=== PATIENT | female | born 1965 | race Caucasian/White ===

== ENCOUNTER 2023-09-03 10:16 | Emergency (ER) | payer BC, SELFPAY ==
[2023-09-03 10:19] VITALS: BP 117/76; PULSE 106; RESP 20; TEMP 36.6; O2SAT 99; BMI 18.6
--- NOTE | 2023-09-03 10:28 | CT_ITS ---
The [address] [address] Patient Name: ELEUTERIO BUTT MRN: [id number] date: 1965 Sex: F Assigned Patient Location: ER Current Patient Location: ER Accession/Order Number: [id number] Exam Date: 09/03/2023 10:40 Report Date: 09/03/2023 11:00 At the request of: VICENTE STOVALL Procedure: CT head/brain wo con CT head/brain wo con, 09/03/2023 10:40 AM EST INDICATION: Headache COMPARISON: None. TECHNIQUE: Axial CT images of the brain from skull base to vertex, including portions of the face and sinuses, were obtained without contrast. Multiplanar reformatted images were generated and reviewed as needed. FINDINGS: No intracranial mass, hydrocephalus, midline shift or acute hemorrhage. No extra-axial collection. Osman-white matter differentiation is preserved. The paranasal sinuses and mastoid air cells are clear. Orbits are within normal limits. No acute skull fracture. CT/CT head/brain wo con IMPRESSION: No acute intracranial abnormality. Electronically authenticated by: SOURAV HARGROVE Date: 09/03/2023 11:00
[2023-09-03 10:56] LABS: Basophils Absolute Auto 0.1 10^3/uL (0.0-0.1); Basophils Percent Auto 0.5 % (0.2-2.0); Eosinophils Percent Auto 0.3 % (0.9-7.0); Hematocrit 41.7 % (36.0-48.0); Hemoglobin 13.3 g/dL (12.0-16.0); Immature Granulocytes Abs Auto 0.04 10^3/uL (0.00-0.03); Immature Granulocytes Pct Auto 0.3 % (0.0-0.5); Lymphocytes Absolute Auto 1.5 10^3/uL (1.2-3.8); Lymphocytes Percent Auto 11.5 % (20.5-60.0); Mean Corpuscular HGB Conc 31.9 g/dL (29.9-35.2); Mean Corpuscular Hemoglobin 28.2 pg (26.7-34.0); Mean Corpuscular Volume 88.3 fL (81.0-99.0); Monocytes Absolute Auto 0.7 10^3/uL (0.3-0.8); Monocytes Percent Auto 5.1 % (1.7-12.0); Neutrophils Absolute Auto 10.7 10^3/uL (1.4-6.5); Neutrophils Percent Auto 82.3 % (43.0-75.0); Platelet Count 564 10^3/uL (150-450); Red Blood Count 4.72 10^6/uL (4.20-5.40); Red Cell Distribution Width 13.5 % (11.0-15.0)
--- NOTE | 2023-09-03 11:01 | ED_ITS ---
HPI - General Adult General Chief complaint: Headache Stated complaint: HEADACHE Time Seen by Provider: 09/03/23 10:25 Source: patient Mode of arrival: walk-in Limitations: no limitations History of Present Illness HPI narrative: Patient is a 57-year-old female who is presenting to the Emergency Room with chief complaint Of multiple symptoms. Patient is complaining of intermittent headache for the past couple weeks. Patient has a history of headaches. Patient says she never gets headaches twice a week. Patient will take ibuprofen for her headaches. Patient says that ibuprofen does not help much the past couple weeks. Patient's #1 chief concern is Tinnitus. Patient's been having constant tinnitus since , 3 days ago. Patient started taking aspirin 4 days ago. Last evening patient is having intermittent white spots and floaters when she is watching TV. Patient is not seen an eye physician for over 3-4 years at least. Last time patient saw an ENT was over 20+ years ago for ear infections. Roxann ent's had no fall, no recent head trauma. No chest pain or shortness of breath. No fever or chills. Positive nausea and headache, no vomiting, no diarrhea, no other acute complaints. Related Data Previous Rx's Medication Instructions Recorded prochlorperazine maleate 10 mg 10 mg PO Q12H PRN nausea and 09/03/23 tablet (Compazine) vomiting, headache 7 days #7 tabs Allergies Allergy/AdvReac Type Severity Reaction Status Date / Time No Known Drug Allergies Allergy Verified 09/03/23 10:23 Review of Systems ROS Narrative All systems are negative except as noted/marked. All systems reviewed and otherwise negative. PFSH PFSH Social History Smoking status: Heavy tobacco smoker Exam Narrative Exam Narrative: Nurses note and vital signs reviewed and patient is not hypoxic. General: The patient appears Distress secondary to pain.. Patient is resting uncomfortably on cart. Patient is not toxic, lethargic, or listless. Patient smells of tobacco products. Skin: Warm, dry, no pallor noted. There is no rash noted. No petechiae, purpura. Head: Normocephalic, atraumatic; No tenderness to palpation to midline or paracervical area, full range of motion of the difficulty. No nuchal rigidity. No meningeal signs or symptoms. Patient has no tenderness to palpation to soft tissues of cervical spine. Eye: Normal conjunctiva, no drainage, EOMI. PERRL Ears, Nose, Mouth, and Throat: oral mucosa is moist. Nares patent. Mouth without vesicles. Cardiovascular: Regular Rate and Rhythm, no murmur, gallop, rub Respiratory: Patient is in no distress, no accessory muscle use, lungs are clear to auscultation, no wheezing, rales or rhonchi Back: non-tender, no CVA tenderness bilaterally to percussion. No CT LS midline pain GI: soft, no tenderness to palpation, no masses appreciated. No rebound, guarding, or rigidity noted. No flank pain bilateral, No distention Musculoskeletal: Patient has full range of motion of all of the extremities, no motor, sensory, or focal neurological deficits Neurological: A&O x3, normal speech Psychiatric: Cooperative Constitutional Vital Signs, click to edit/add: Last Vital Signs Temp 97.8 F 09/03/23 10:19 Pulse 106 H 09/03/23 10:19 Resp 20 09/03/23 10:19 BP 117/76 09/03/23 10:19 Pulse Ox 99 09/03/23 10:19 Course Vital Signs Vital signs: Vital Signs Temperature 97.8 F 09/03/23 10:19 Pulse Rate 106 H 09/03/23 10:19 Respiratory Rate 20 09/03/23 10:19 Blood Pressure 117/76 09/03/23 10:19 Pulse Oximetry 99 09/03/23 10:19 Temperature 97.8 F 09/03/23 10:19 Pulse Rate 106 H 09/03/23 10:19 Respiratory Rate 20 09/03/23 10:19 Blood Pressure 117/76 09/03/23 10:19 Pulse Oximetry 99 09/03/23 10:19 Medical Decision Making MDM Narrative Medical decision making narrative: Patient had a CT of the brain. Patient had IV established. Patient is given multiple medications to help with her symptoms of nausea and headache. Patient had a carbon monoxide tested, patient also had oxygen applied 15 L nonrebreather to help with headaches for 20 minutes. Patient's urine IV fluids and lab work. 1215 Patient's headache has improved to 6/10. Patient's fraction of carboxy hemoglobin is FCOHb 4.3 percent. Patient is a smoker, stating that normally 4-9 percent is a normal smokers level. Patient will be sent home with Compazine prescription with nausea, vomiting, and headache. Patient was given IV fluids. Patient's nausea has improved. Patient will stop taking aspirin daily to see if this helps and peritonitis. Patient is referred to ENT as well. Patient has not had an eye exam over 3-4 years, patient is referred to follow-up with her eye physician for repeat evaluation as well for floaters and intermittent halos. Possible differential diagnoses regarding the patient for these as well. Patient headache and better, sent home with prescription for Compazine. No questions discharged Lab Data Labs: Lab Results 09/03/23 09/03/23 Range/Units 10:50 11:40 WBC 13.0 H (4.0-11.0) 10^3/uL RBC 4.72 (4.20-5.40) 10^6/uL Hgb 13.3 (12.0-16.0) g/dL Hct 41.7 (36.0-48.0) % MCV 88.3 (81.0-99.0) fL MCH 28.2 (26.7-34.0) pg MCHC 31.9 (29.9-35.2) g/dL RDW 13.5 (11.0-15.0) % Plt Count 564 H (150-450) 10^3/uL MPV 8.0 L (9.5-13.5) fL Neut % (Auto) 82.3 H (43.0-75.0) % Lymph % (Auto) 11.5 L (20.5-60.0) % Powell % (Auto) 5.1 (1.7-12.0) % Eos % (Auto) 0.3 L (0.9-7.0) % Baso % (Auto) 0.5 (0.2-2.0) % Neut # (Auto) 10.7 H (1.4-6.5) 10^3/uL Lymph # (Auto) 1.5 (1.2-3.8) 10^3/uL Powell # (Auto) 0.7 (0.3-0.8) 10^3/uL Eos # (Auto) 0.0 (0.0-0.7) 10^3/uL Baso # (Auto) 0.1 (0.0-0.1) 10^3/uL Abs Immat Gran (auto) 0.04 H (0.00-0.03) 10^3/uL Imm/Tot Granulo (auto) 0.3 (0.0-0.5) % Puncture Site L radial ABG pH 7.400 (7.350-7.450) ABG pCO2 36.2 (35.0-45.0) mmHg ABG pO2 82.9 (80.0-100.0) mmHg ABG HCO3 22.4 (22.0-26.0) mmol/L ABG O2 Saturation 96.9 % ABG Base Excess -2.4 L (-2.0-2.0) mmol/L Tariq Test Positive (POSITIVE) Sodium 143 (136-145) mmol/L Potassium 3.9 (3.5-5.1) mmol/L Chloride 106 (98-107) mmol/L Carbon Dioxide 27.7 (21.0-32.0) mmol/L Anion Gap 13.2 BUN 19.0 H (7.0-18.0) mg/dL Creatinine 0.64 (0.55-1.02) mg/dL Est GFR ( Amer) >60 (>=60) Est GFR (Non-Af Amer) >60 (>=60) BUN/Creatinine Ratio 29.7 Glucose 94 (74-106) mg/dL Calcium 8.7 (8.5-10.1) mg/dL Discharge Plan Discharge Chief Complaint: Headache Clinical Impression: Vision changes, Headache, Nausea & vomiting, Tinnitus Patient Disposition: Home, Self-Care Time of Disposition Decision: 12:30 Condition: Fair Prescriptions / Home Meds: New prochlorperazine maleate [Compazine] 10 mg tablet 10 mg PO Q12H PRN (Reason: nausea and vomiting, headache) 7 Days Qty: 7 0RF Instructions: Acute Nausea and Vomiting (DC), Blurred Vision (ED), Tinnitus (ED), General Headache (ED) Additional Instructions: Call your eye physician tomorrow, Monday, and make an appointment for reevaluation and have eye exam thoroughly done since this has not been done over 3-4 years. Follow-up with ENT if tinnitus continues, stop taking aspirin daily to see if this helps with tendinitis. Use Compazine as needed for nausea, vomiting, headache. Continue using Tylenol anti-inflammatories as well if needed. Stand Alone Forms: Portal Instructions Referrals: SUNITA LYONS [Primary Care Provider] - 1 week
[2023-09-03] MEDS: DEXAMETHASONE SOD PHOS 10 MG/ML VIAL IV (11:08)
[2023-09-03] MEDS: 0.9 % SODIUM CHLORIDE 1,000 ML 1000 ML IV (11:08)
[2023-09-03] MEDS: PROCHLORPERAZINE 10 MG/2 ML VIAL IV (11:08)
[2023-09-03] MEDS: ACETAMINOPHEN 500 MG TABLET PO (11:08)
[2023-09-03] MEDS: KETOROLAC TROMETHAMINE 30 MG/ML VIAL 15 MG IVP (11:09)
[2023-09-03 11:10] LABS: Anion Gap 13.2; BUN Creatinine Ratio 29.7; Calcium 8.7 mg/dL (8.5-10.1); Carbon Dioxide 27.7 mmol/L (21.0-32.0); Chloride 106 mmol/L (98-107); Estimated GFR (African America >60 (>=60); Estimated GFR (Non-African Ame >60 (>=60); Glucose 94 mg/dL (74-106); Potassium 3.9 mmol/L (3.5-5.1); Sodium 143 mmol/L (136-145)
[2023-09-03 11:48] LABS: ABG PCO2 36.2 mmHg (35.0-45.0); Allen Test POSITIVE (POSITIVE); Base Excess ABG -2.4 mmol/L (-2.0-2.0); HCO3 ABG 22.4 mmol/L (22.0-26.0); O2 Mode ROOM AIR; Oxygen Saturation ABG 96.9 %; PO2 ABG 82.9 mmHg (80.0-100.0); Puncture Site L RADIAL
== END 2023-09-03 12:52 | disposition home or self-care (01) ==
PROVIDERS: Emergency Provider Emergency Medicine; PCP Family Medicine
DX: H93.19 Tinnitus, unspecified ear (principal); R51.9 Headache, unspecified; R11.2 Nausea with vomiting, unspecified; H53.9 Unspecified visual disturbance; F17.210 Nicotine dependence, cigarettes, uncomplicated
CPT/HCPCS: 36415; 36600; 70450; 80048; 82375; 82805; 85025; 96374; 96375; 99284; J1100

== ENCOUNTER 2024-01-29 16:24 | Emergency (ER) | payer BC, SELFPAY ==
[2024-01-29 16:28] VITALS: BP 118/82; PULSE 124; TEMP 36.8; O2SAT 97; BMI 16.5
--- NOTE | 2024-01-29 16:37 | XR_ITS ---
The [address] [address] Patient Name: ELEUTERIO BUTT MRN: [id number] date: 1965 Sex: F Assigned Patient Location: ER Current Patient Location: ER Accession/Order Number: [id number] Exam Date: 01/29/2024 17:00 Report Date: 01/29/2024 18:01 At the request of: HILDA JAIMES Procedure: XR hip RT 2V w/ pelvis EXAM: XR hip RT 2V w/ pelvis HISTORY: fall COMPARISON: None. TECHNIQUE: 5 images of the right hip FINDINGS: Status post antegrade intramedullary arcenio insertion of the right femur. No hardware complication. Distal right femoral shaft fracture is healed. No acute fracture. There is no dislocation. The soft tissues are unremarkable. XR/XR hip RT 2V w/ pelvis IMPRESSION: No acute processes. Electronically authenticated by: MADISON CASTRO Date: 01/29/2024 18:01
--- NOTE | 2024-01-29 16:38 | ED_ITS ---
HPI HPI - Extremity Injury (Lower) General Chief Complaint: Extremity Injury, Lower Stated Complaint: hip pain, radiating Time Seen by Provider: 01/29/24 16:33 Source: patient Mode of arrival: walk-in Limitations: no limitations History of Present Illness HPI Narrative: Patient is a 58-year-old female who presents to the emergency department for the evaluation of right posterior hip pain after a fall several days ago. She states she tripped and fell on her right side and believes her right hip hit first. She is a very thin female, she has had a arcenio placed for a femur fracture in the past. She reports most of her pain in the right posterior hip and states today the pain is radiating down the leg. She denies any numbness or tingling. She denies head injury, loss of consciousness, neck pain. She is able to ambulate although reports pain with doing so. She is not anticoagulated. She has not had any urinary symptoms or incontinence Related Data Previous Rx's ?Medication ?Instructions ?Recorded hydrocodone 5 mg-acetaminophen 325 1 tab PO Q6H PRN pain 2 days #8 01/29/24 mg tablet tabs methocarbamol 500 mg tablet 500 mg PO Q8H PRN muscle pain #12 01/29/24 tabs Allergies Allergy/AdvReac Type Severity Reaction Status Date / Time No Known Drug Allergies Allergy Verified 09/03/23 10:23 Opioid HPI Opioid Management Most Recent Pain and Opioid Data: Last Pain Scale 7 01/29/24 16:48 Last MAR Pain Assessment 01/29/24 16:48 Review of Systems ROS Constitutional Denies: fever or chills Ears, nose, mouth, and throat Denies: throat pain or nasal congestion Respiratory Denies: shortness of breath or cough Gastrointestinal Denies: abdominal pain, nausea or vomiting Musculoskeletal Reports: extremity pain and joint pain; Denies: back pain, neck pain or limited range of motion Integumentary/Breast Denies: rash Neurological Denies: headache Hematologic/Lymphatic Denies: easy bruising or easy bleeding [facility] Medical History (Updated 01/29/24 @ 18:05 by AYAN Barr) Fracture, femur, neck ?S72.009A - Fracture of unspecified part of neck of unspecified femur, initial encounter for closed fracture (ICD-10) Social History Smoking status: Heavy tobacco smoker Exam Narrative Exam Narrative: Gen.: Awake, alert, in no distress Head: Normocephalic, atraumatic ENT: Moist mucous membranes Respiratory: No respiratory distress Extremities: Moves extremities equally, Healing ecchymosis to the right posterior hip with well-healed surgical incision over the right lateral hip. Normal flexion and extension of the right knee. No decrease in sensation to the medial thighs, normal dorsiflexion and plantarflexion of the lower extremities. No bony tenderness of the T-spine or L-spine. No obvious deformity Psych: Normal mood and affect Neuro: No focal neuro deficit Skin: Warm, dry, intact Constitutional Vital Signs, click to edit/add: Last Vital Signs Temp 98.3 F 01/29/24 16:28 Pulse 124 H 01/29/24 16:28 Resp 20 01/29/24 16:28 BP 118/82 01/29/24 16:28 Pulse Ox 97 01/29/24 16:28 O2 Del Method Room Air 01/29/24 16:28 Course Vital Signs Vital signs: Vital Signs Temperature 98.3 F 01/29/24 16:28 Pulse Rate 124 H 01/29/24 16:28 Respiratory Rate 20 01/29/24 16:28 Blood Pressure 118/82 01/29/24 16:28 Pulse Oximetry 97 01/29/24 16:28 Oxygen Delivery Method Room Air 01/29/24 16:28 Temperature 98.3 F 01/29/24 16:28 Pulse Rate 124 H 01/29/24 16:28 Respiratory Rate 20 01/29/24 16:28 Blood Pressure 118/82 01/29/24 16:28 Pulse Oximetry 97 01/29/24 16:28 Oxygen Delivery Method Room Air 01/29/24 16:28 MDM - Extremity Injury (Lower) MDM Narrative Medical decision making narrative: Patient reviewed by the radiologist with no evidence of fracture or dislocation, imaging was performed completely of the right femur due to previous hardware. Patient will be discharged with a short course of analgesics and muscle relaxants. Follow-up with PCP and return to the ER if symptoms change or worsen. Heart rate was rechecked prior to discharge with improvement. Medical Records Attestation: I reviewed the patient's medical records. Imaging Data XR hip: Attestation: I have reviewed the pertinent imaging results. Radiologist's impression: ITS Impressions Hip/Pelvis X-Ray 01/29/24 16:37 IMPRESSION: No acute processes. Electronically authenticated by: MADISON CASTRO Date: 01/29/2024 18:01 Discharge Plan Discharge Stand Alone Forms: Portal Instructions Chief Complaint: Extremity Injury, Lower Clinical Impression: Contusion of right hip Patient Disposition: Home, Self-Care Time of Disposition Decision: 18:05 Condition: Good Prescriptions / Home Meds: New hydrocodone-acetaminophen 5-325 mg tablet 1 tab PO Q6H PRN (Reason: pain) 2 Days Qty: 8 0RF Rx Instructions: DX: M25.551 methocarbamol 500 mg tablet 500 mg PO Q8H PRN (Reason: muscle pain) Qty: 12 0RF Print Language: Belarusian Instructions: Hip Contusion (ED) Referrals: SUNITA LYONS [Primary Care Provider] - 1 week
[2024-01-29] MEDS: HYDROCODONE/ACET 5-325 MG TABLET 1 TAB PO (16:48)
--- OUTSIDE RECORDS SUMMARY | 2024-01-29 16:49 | XMS_ITS | CCD ---
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 Name Role Phone Sunita Lyons Primary Care Provider [phone] CHANELLE JIMENEZ Attending Unavailable ELIZABETH, DR DORSEY Primary Care Unavailable CHANELLE JIMENEZ Admitting Unavailable MANAN, DR SAMUEL Lei Consulting Unavailable CHANELLE JIMENEZ Consulting Unavailable ELIZABETH, DR DORSEY Attending Unavailable ELIZABETH, DR DORSEY Consulting Unavailable ELIZABETH, DR DORSEY Primary Care Unavailable ELIZABETH, DR DORSEY Admitting Unavailable Sunita Lyons Unavailable DO Sunita Lyons Primary Care Provider DO Sunita Lyons Attending Provider Sunita Lyons Primary Care Unavailable Sunita Lyons Attending Unavailable Sunita Lyons Admitting Unavailable Sunita Lyons Attending Unavailable Sunita Lyons Admitting Unavailable Sunita Lyons Primary Care Unavailable Medications Current Medications Medication Drug Class(es) Dates Sig (Normalized) Sig (Original) [id number] 200 actuat albuterol 0.09 mg/actuat metered dose inhaler (4 sources) beta2-Adrenergic Agonist Start: 07-03-2018 take 2 puff(s) by inhalation every six hours as needed Ventolin HFA 108 (90 Base) MCG/ACT 2 puffs as needed Inhalation every [address] Jimenez Jun, Active Start: 07-03-2018 Start: 12-24-2015 take 2 puff(s) by in halation every six hours as needed for wheezing albuterol HFA (PROAIR HFA) 90 mcg/actuation inhaler Inhale 2 Puffs as instructed every 6 hours as needed for Wheezing/Shortness of Breath. 1 Inhaler 2 12/24/2015 Active Comment on above: Inhale 2 Puffs as in structed every 6 hours as needed for Wheezing/Shortness of Breath. azithromycin 250 mg oral tablet (3 sources) Macrolide Antimicrobial Start: 10-05-2021 Zithromax Z-Akbar 250 MG 2 tablet on the first day, then 1 tablet daily for 4 days Orally Once a day for 5 day(s) Sep, Active Start: 10-05-2021 Chantix Starting Month Akbar 0 .5 MG X 11 & 1 MG X 42 (3 sources) Chantix Starting Month Akbar 0.5 MG X 11 & 1 MG X [address] Jimenez Active citric acid 75 mg/ml / magnesium oxide 21.9 mg/ml / picosulfate sodium 0.0625 mg/ml oral solution (3 sources) Calculi Dissolution Agent, Anti-coagulant Start: 04-16-2021 take 160 mL by mouth in the evening, then take 160 mL by mouth twice daily in the evening Clenpiq 10-3.5-12 MG-GM -GM/160ML 160 ML AT 3:00 PM AND 160 ML AT 9:00 PM Orally TWICE A DAY for 1 days PLEASE CHECK ALLERGIES Apr, Active dexamethasone 2 mg oral tablet (3 sources) Corticosteroid Start: 10-05-2021 Dexamethasone 2 MG 1 tablet Orally TID X 3 DAYS, BID X 3 DAYS THEN DAILY X 3 DAYS Sep, Active Completed/Discontinued Medications Medication Drug Class(es) Dates Sig (Normalized) Sig (Original) erythromycin 0.005 mg/mg ophthalmic ointment (4 sources) Macrolide, Macrolide Antimicrobial Start: 12-25-2023 End: 01-11-2024 Erythromycin Discontinued 1 APPLIC EYE-RIGHT Twice daily 3.5 7 December 25, 2023 12:00am January 11, 2024 10:45am ethambutol hydrochloride 400 mg oral tablet (1 source) Antimycobacterial Start: 02-14-2017 take 2 tablets by mouth once daily ethambutol (MYAMBUTOL) 400 mg tablet TAKE 2 TABLETS BY MOUTH ONE TIME A DAY 60 tablet 6 02/14/2017 Active Comment on above: TAKE 2 TABLETS BY MO [facility] ONE TIME A DAY isoniazid 300 mg oral tablet (1 source) Antimycobacterial Start: 02-14-2017 take 1 tablet by mouth once daily isoniazid (INH, NYDRAZID) 300 mg tablet TAKE 1 TABLET BY MOUTH ONE TIME A DAY 30 tablet 6 02/14/2017 Active Comment on above: TAKE 1 TABLET BY OMID TH ONE TIME A DAY rifAMPin 300 mg oral capsule (1 source) Rifamycin Antibacterial Start: 02-14-2017 take 2 capsules by mouth once daily rifAMPin (RIFADIN) 300 mg capsule TAKE 2 CAPSULES BY MOUTH ONE TIME A DAY 60 capsule 6 02/14/2017 Active Comment on above: TAKE 2 CAPSULES BY M OUT ONE TIME A DAY varenicline 0.5 mg oral tablet (2 sources) Partial Cholinergic Nicotinic Agonist Start: 12-24-2015 take 1 tablet by mouth once, then take 1 tablet by mouth once daily, then take 1 tablet by mouth twice daily, then take 1 tablet by mouth twice daily Varenicline (CHANTIX STARTING BOX) 0.5 mg (11)- 1 mg (42) tablet Take 0.5 mg by mouth as directed. Take one 0.5mg tablet by mouth once daily for 3 days, then increase to one 0.5mg tablet twice daily for 3 days, then increase to one 1mg tablet twice daily. 1 Package 0 12/24/2015 Active Start: 12-24-2015 take 1 tablet by omid th twice daily varenicline (CHANTIX CONTINUING MONTH BOX) 1 mg tablet Take 1 tablet by mouth twice daily. 2 Package 0 12/24/2015 Active Comment on above: Take 0.5 mg by mouth as directed. Take one 0.5mg tablet by mouth once daily for 3 days, then increase to one 0.5mg tablet twice daily for 3 days, then increase to one 1mg tablet twice daily. Take 1 tablet by omid th twice daily. Varenicline (Chantix Starting Month Box) 0.5 mg (11)- 1 mg (42) tablets,dose pack (3 sources) Start: 4 End: 4 take 1 tablet by mouth once Varenicline (Chantix Starting Month Box) 0.5 mg (11)- 1 mg (42) tablets,dose pack Discontinued TAB PO As Directed January 11, 2024 12:00am January 16, 2024 2:26pm FreeTextSig: as directed Orally; Note: Source Status: TakingDr. Jimenez; Provider: Elizabeth Dorsey ( ) vitamin b6 50 mg oral tablet (1 source) Start: 7 take 1 tablet by mouth once daily VITAMIN B-6 50 mg tablet TAKE 1 TABLET BY MOUTH ONE TIME A DAY 30 tablet 6 02/14/2017 Active Comment on above: TAKE 1 TABLET BY OMID TH ONE TIME A DAY Problems Active Problems Problem Classification Problem Date Documented Date Episodic/Chronic Chronic obstructive pulmonary disease and bronchiectasis (11 sources) Chronic obstructive pulmonary disease, unspecified; Translations: [Bronchiectasis] Onset: 03-15-2021 Chronic Disorders of lipid metabolism (6 sources) Hyperlipidemia; Translations: [Hyperlipidemia, unspecified] 01-11-2024 Chronic Genitourinary symptoms and ill-defined conditions (4 sources) Hematuria, unspecified; Translations: [Hematuria, unspecified] Onset: 01-23-2024 01-16-2024 Episodic Inflammation; infection of eye (except that caused by tuberculosis or sexually transmitteddisease) (6 sources) Hordeolum; Translations: [Hordeolum externum unspecified eye, unspecified eyelid] 12-25-2023 Episodic Other lower respiratory disease (1 source) Other disorders of lung; Translations: [OTHER DISORDERS OF LUNG] Onset: 03-20-2021 Episodic Other screening for suspected conditions (not mental disorders or infectious disease) (11 sources) Patient encounter status; Translations: [Encounter for screening for malignant neoplasm of colon] Onset: 01-23-2024 05-07-2021 Episodic Pneumonia (except that caused by tuberculosis or sexually transmitted disease) (1 source) Pulmonary mycobacterial infection; Translations: [PULMONARY MYCOBACTERIAL INFECTION] Onset: 03-20-2021 Episodic Residual codes; unclassified (8 sources) Family history of cancer of colon; Translations: [Family history of malignant neoplasm of digestive organs] 05-07-2021 Episodic Residual codes; unclassified (3 sources) History of colonoscopy; Translations: [Other specified postprocedural states] 01-11-2024 Episodic Spondylosis; intervertebral disc disorders; other back problems (3 sources) Solitary sacroiliitis; Translations: [Sacroiliitis, not elsewhere classified] Chronic Substance-related disorders (3 sources) Nicotine dependence; Translations: [Nicotine dependence, unspecified, uncomplicated] Chronic Past or Other Problems Problem Classification Problem Date Documented Da te Episodic/Chronic Other lower respiratory disease (1 source) Cavitation of lung; Translations: [Other disorders of lung] Onset: 12-31-2015 12-31-2015 Episodic Viral infection (1 source) COVID-19 Onset: 10-13-2021 Resolved: 10-13-2021 Results Test Name Value Interpretation Reference Range Facility [facility] echo transthoracicon [facility] echo transthoracic [facility] [place] [address] [place], [place] [id number] Echocardiogram Signed Patient: Michelle Gustafson MR#: [id number] 23 : 1965 Acct:[id number] Age/Sex: 58 / F ADM Date: 01/23/24 Loc: Room: Type: [facility] Attending Dr: Sunita Lyons DO Ordering Provider: Sunita Lyons DO Date of Service: 01/23/24 [facility] echo transthoracic: R94.31 - Abnormal electrocardiogram [ECG] [EKG] Copies to: DO Bobby Cowan MD BSA: 1.5 m2 BP: 109/76 mmHg HR: 101 Reason For Study: Abnormal electrocardiogram [ECG] [EKG] History: Smoker. COPD. Family history: Mother-Heart Disease. Interpretation Summary Ejection Fraction = 60-65%. The left ventricular size and thickness are normal. The left ventricular wall motion is normal. The patient was tachycardic through out the study. Compared to prior study, there is no significant change. Procedure/Quality: A two-dimensional transthoracic echocardiogram with color flow and Doppler was performed. The study was technically good in quality. Left Ventricle: The left ventricular size and thickness are normal. Ejection Fraction = 60-65%. The left ventricular wall motion is normal. Left Atrium: The left atrium appears normal in size. Right Atrium: The right atrium appears normal in size. Right Ventricle: The right ventricle is normal in size and function. Aortic Valve: The aortic valve is trileaflet. The aortic valve is mildly sclerotic. No hemodynamically significant valvular aortic stenosis. No aortic regurgitation is present. Mitral Valve: The mitral valve is normal in structure. No significant mitral valve stenosis. There is no mitral regurgitation noted. Tricuspid Valve: The tricuspid valve is not well visualized. No tricuspid regurgitation. Pulmonic Valve: The pulmonic valve is not well visualized. No significant pulmonic regurgitation. Arteries: The aortic root is normal size. Pericardium/Pleura: No pericardial effusion seen. There is no pleural effusion. IVC/Hepatic Veins: The inferior vena cava is normal in size, with a normal collapsibility index. Miscellaneous: The patient was tachycardic through out the study. Measurements with Normals IVSd: 0.96 cm (0.7-1.1 cm)LVIDd: 3.5 cm (3.7-5.4 cm) LVPWd: 1.1 cm (0.7-1.1 cm)LVIDs: 2.4 cm (2.3-3.6 cm) LA dimension: 2.1 cm (2.3-4.0 cm)Ao root diam: 2.9 cm(2.0-3.6 cm) asc Aorta Diam: 3.1 cm(2.1-3.4cm) Doppler with Normals RVSP(TR): 27.4 mmHg (18-35mmHg) LV V1 max: 109.0 cm/sec (0.7-1.7m/s)MV E max vincent: 68.9 cm/sec(0.8-1.3m/s) MV A max vincent: 95.6 cm/sec(0.0-0.0m/s) MV E/A: 0.72 (<1.5) MMode/2D Measurements Calculations RVDd: 2.4 cm FS: 31.5 % Ao root area: LVOT diam: 2.0 cm TAPSE: 2.4 cm EDV(Teich): 6.5 cm2 LVOT area: 3.3 cm2 RV S Vincent: 50.8 ml 15.0 cm/sec ESV(Teich): 20.1 ml EF(Teich): 60.5 % __ LVLd ap4: 7.1 cm SV(MOD-sp4): LAV(MOD-sp4): LA A2 area: 11.8 cm2 EDV(MOD-sp4): 32.8 ml 14.1 ml 58.5 ml LAV(MOD-sp2): LA A4 area: 9.3 cm2 LVLs ap4: 6.0 cm 21.9 ml LA length (vol): ESV(MOD-sp4): 4.2 cm 25.7 ml LA vol: 21.9 ml EF(MOD-sp4): 56.1 % LA vol index: 14.6 ml/m2 Doppler Measurements Calculations MV dec time: MV max PG: E/E' med: 9.2 MV dec slope: 0.14 sec 98.0 mmHg 501.6 cm/sec2 __ Ao V2 max: LV V1 max PG: MR max vincent: TV max P.0 mmHg 144.8 cm/sec 4.7 mmHg 495.3 cm/sec Ao max P.4 mmHgLV V1 mean PG: MR max PG: Ao mean P.7 mmHg 98.1 mmHg 5.3 mmHg LV V1 mean: Ao V2 mean: 77.4 cm/sec 110.4 cm/sec LV V1 VTI: 17.0 cm Ao V2 VTI: 22.5 cm SHASHI(I,D): 2.5 cm2 SHASHI(V,D): 2.5 cm2 __ TR max vincent: 247.0 cm/sec TR max P.4 mmHg RAP systole: 3.0 mmHg Transcribed By: SCV Performed At: 01/23/24 1455 Signed By: Bobby Olivera MD 01/23/24 1717 Normal [facility] US renal BIon 01-23-2024 [place] [address] Ultrasound Report Signed Patient: Michelle Gustafson MR#: [id number] 23 : 1965 Acct:[id number] Age/Sex: 58 / F ADM Date: 01/23/24 Loc: Room: Type: [facility] Attending Dr: Sunita Lyons DO Ordering Provider: Sunita Lyons DO Date of Service: 01/23/24 US/US renal BI: R31.9 - Hematuria, unspecified Copies to: Sunita Lyons DO BILATERAL RENAL AND BLADDER ULTRASOUND CLINICAL HISTORY: Hematuria COMPARISON: None FINDINGS: Estimation of renal size is approximately 11.46 cm on the right and 11.96 cm on the left. No contour deforming mass, shadowing stone or hydronephrosis. Small cyst left kidney. The urinary bladder is partially distended with a volume of 52.06 ml. No shadowing stone or focal lesion. No significant postvoid residual. US/US renal BI IMPRESSION: No acute findings. Impression dictated by: Abbe Aguero Jr., D.O.01/23/2024 5:55 PM Dictation Location: [place] [address] Tech: Ingrid Najera Transcribed By: DEZ 01/23/241754 Dictated By: Abbe Aguero Jr, DO 01/23/241753 Signed By: 01/23/241754 Normal [facility] XR chest 2V*on 01-23-2024 XR chest 2V* [facility] [address] XRay Report Signed Patient: Michelle Gustafson MR#: [id number] 23 : 1965 Acct:[id number] Age/Sex: 58 / F ADM Date: 01/23/24 Loc: Room: Type: [facility] Attending Dr: Sunita Lyons DO Copies to: Sunita Lyons DO Ordering Provider: Sunita Lyons DO Date of Service: 01/23/24 XR/XR chest 2V*: J47.9 - Bronchiectasis, uncomplicated Chest 2 views CLINICAL HISTORY: Bronchiectasis. COMPARISON: Chest 02-25. FINDINGS: Heart appears normal in size. Interval progression of a right apical cavitary lesion compared to the prior study from 2018. The degree of reticular nodularity involving both lungs is also progressed. No pneumothorax, pleural effusion or free air. 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 PROGRESSION OF DISEASE POSSIBLY AN ATYPICAL INFECTIOUS PROCESS IS SUSPECTED. Impression dictated by: Radha Ashley Jr..O.01/23/2024 5:56 PM Dictation Location: [place] [address] Transcribed By: [facility] 01/23/241755 Dictated By: Abbe Aguero Jr, DO 01/23/241754 Signed By: 01/23/241755 Normal [facility] A1C with Estimated Average G fely 01-17-2024 Glucose [Mass/Vol] 128 mg/dL Normal [facility] Comment on above: Result Comment: PERF ORMED BY: [place] [address] PATHOLOGIST EMAIL MARKETING ASSISTANT GARLAND CASAREZ M.D. Performed By: #### A 1C WT eA, CBC, TSH3, LIPID, CMP #### [address] HbA1c (Bld) [Mass fraction] 6.1 % High 4.3-5.6 [facility] Comment on above: Result Comment: Incr eased risk for diabetes: 5.7 - 6.4 diabetes: >6.4 glycemic control for adults with diabetes: <7.0 Performed By: #### A 1C WTH eA, CBC, TSH3, LIPID, CMP #### [facility] [address] [place] [address] Alanine aminotransferase [En zymatic activity/volume] in Serum or PlasmaOrdered By: Sunita Lyons on 01-17-2024 ALT [Catalytic activity/Vol] 10 U/L 7-52 [facility] Albumin [Mass/volume] in Ser um or Plasma by Bromocresol green (BCG) dye binding methoOrdered By: Sunita Lyons on 01-17-2024 Albumin BCG dye [Mass/Vol] 3.6 g/dL 3.5-5.7 [facility] Alkaline phosphatase [Enzyma tic activity/volume] in Serum or PlasmaOrdered By: Sunita Lyons on 01-17-2024 ALP [Catalytic activity/Vol] 81 U/L 34-104 [facility] Aspartate aminotransferase [ Enzymatic activity/volume] in Serum or PlasmaOrdered By: Sunita Lyons on 01-17-2024 AST [Catalytic activity/Vol] 13 U/L 13-39 [facility] Basophils Auto (Bld) [#/Vol] Ordered By: Sunita Lyons on 01-17-2024 Basophils (Bld) [#/Vol] 0.1 10*3/uL 0.0-0.2 [facility] Basophils/100 WBC Auto (Bld) Ordered By: Sunita Lyons on 01-17-2024 Basophils/100 WBC (Bld) 0.6 % . [facility] Bilirubin.total [Mass/volume ] in Serum or PlasmaOrdered By: Sunita Lyons on 01-17-2024 Bilirubin [Mass/Vol] 0.3 mg/dL 0.3-1.0 [facility] Calcium [Mass/volume] in Ser um or PlasmaOrdered By: Sunita Lyons on 01-17-2024 Calcium [Mass/Vol] 9.3 mg/dL 8.6-10.3 [facility] Carbon dioxide, total [Moles /volume] in Serum or PlasmaOrdered By: Sunita Lyons on 01-17-2024 CO2 [Moles/Vol] 31.8 mmol/L 21.0-31.0 [facility] Chloride [Moles/volume] in S tessie or PlasmaOrdered By: Sunita Lyons on 01-17-2024 Chloride [Moles/Vol] 105 mmol/L 98-107 [facility] Cholesterol [Mass/volume] in Serum or PlasmaOrdered By: Sunita Lyons on 01-17-2024 Cholesterol [Mass/Vol] 258 mg/dL 140-200 [facility] Comment on above: Chol less than 200 m g/dl low riskChol 201-239 mg/dl borderline riskChol 240 mg/dl and greater high risk Cholesterol in LDL Calc [Mas s/Vol]Ordered By: Sunita Lyons on 01-17-2024 Cholesterol in LDL [Mass/Vol] 182 mg/dL 0-100 [facility] Comment on above: LDL ATP III CLASSIFI CATIONLDL less than 100 mg/dL OptimalLDL 100-129 mg/dL Near or above optimalLDL 130-159 mg/dL Borderline highLDL 160-189 mg/dL HighLDL greater than 189 mg/dL Very high Cholesterol in VLDL Calc [Ma ss/Vol]Ordered By: Sunita Lyons on 01-17-2024 Cholesterol in VLDL [Mass/Vol] 33 mg/dL [facility] Complete Blood Count Auto Di ffon 01-17-2024 Basophils (Bld) [#/Vol] 0.1 10*3/uL Normal 0.0-0.2 [facility] Comment on above: Result Comment: PERF ORMED BY: [place] [address] PATHOLOGIST EMAIL MARKETING ASSISTANT GARLAND CASAREZ M.D. Performed By: #### A 1C WTH eA, CBC, TSH3, LIPID, CMP #### [address] Basophils/100 WBC (Bld) 0.6 % Normal . T lucila [facility] Comment on above: Performed By: #### A 1C WTH eA, CBC, TSH3, LIPID, CMP #### [address] Eosinophils (Bld) [#/Vol] 0.2 10*3/uL Normal 0.0-0.45 [facility] Comment on above: Performed By: #### A 1C WTH eA, CBC, TSH3, LIPID, CMP #### [address] Eosinophils/100 WBC (Bld) 1.3 % Normal . [facility] Comment on above: Performed By: #### A 1C WTH eA, CBC, TSH3, LIPID, CMP #### [address] Erythrocyte distribution width (RBC) [Ratio] 14.1 % Normal 11.9-15.3 [facility] Comment on above: Performed By: #### A 1C WTH eA, CBC, TSH3, LIPID, CMP #### [address] Hematocrit (Bld) [Volume fraction] 41.6 % Normal 34.0-46.4 [facility] Comment on above: Performed By: #### A 1C WTH eA, CBC, TSH3, LIPID, CMP #### [address] Hemoglobin (Bld) [Mass/Vol] 13.1 g/dL Normal 11.8-15.4 [facility] Comment on above: Performed By: #### A 1C WTH eA, CBC, TSH3, LIPID, CMP #### [address] Lymphocytes (Bld) [#/Vol] 2.2 10*3/uL Normal 1.00-4.8 [facility] Comment on above: Performed By: #### A 1C WTH eA, CBC, TSH3, LIPID, CMP #### [address] Lymphocytes/100 WBC (Bld) 17.2 % Normal . [facility] Comment on above: Performed By: #### A 1C WTH eA, CBC, TSH3, LIPID, CMP #### [address] MCH (RBC) [Entitic mass] 26.0 pg Normal 24.7-34.3 [facility] Comment on above: Performed By: #### A 1C WTH eA, CBC, TSH3, LIPID, CMP #### [address] MCV (RBC) [Entitic vol] 82.9 fL Normal 80-100 T [facility] Comment on above: Performed By: #### A 1C WTH eA, CBC, TSH3, LIPID, CMP #### [address] Mean Corpuscular HGB Conc 31.4 g/dL Low 32.0-35.0 [facility] Comment on above: Performed By: #### A 1C WTH eA, CBC, TSH3, LIPID, CMP #### [address] Monocytes (Bld) [#/Vol] 1.0 10*3/uL High 0.0-0.8 [facility] Comment on above: Performed By: #### A 1C WTH eA, CBC, TSH3, LIPID, CMP #### [facility] [address] Monocytes/100 WBC (Bld) 7.8 % Normal . Kike gaytan [facility] Comment on above: Performed By: #### A 1C WTH eA, CBC, TSH3, LIPID, CMP #### [address] Neutrophils (Bld) [#/Vol] 9.3 10*3/uL High 1.8-7.7 [facility] Comment on above: Performed By: #### A 1C WTH eA, CBC, TSH3, LIPID, CMP #### [address] Neutrophils/100 WBC (Bld) 73.1 % Normal . [facility] Comment on above: Performed By: #### A 1C WTH eA, CBC, TSH3, LIPID, CMP #### [address] NRBC% 0.2 /100{WBC} Normal 0-0.5 [facility] Comment on above: Performed By: #### A 1C WTH eA, CBC, TSH3, LIPID, CMP #### [address] Platelet mean volume (Bld) [Entitic vol] 6.4 fL Normal 6.3-10.7 [facility] Comment on above: Performed By: #### A 1C WTH eA, CBC, TSH3, LIPID, CMP #### [address] Platelets (Bld) [#/Vol] 638 10*3/uL High 150-450 [facility] Comment on above: Performed By: #### A 1C WTH eA, CBC, TSH3, LIPID, CMP #### [address] RBC (Bld) [#/Vol] 5.02 10*6/uL High 3.60-5.00 [facility] Comment on above: Performed By: #### A 1C WTH eA, CBC, TSH3, LIPID, CMP #### [address] WBC (Bld) [#/Vol] 12.7 10*3/uL High 3.8-11.6 [facility] Comment on above: Performed By: #### A 1C WTH eA, CBC, TSH3, LIPID, CMP #### [address] Comprehensive Metabolic Pane abdiaziz 01-17-2024 Albumin [Mass/Vol] 3.6 g/dL Normal 3.5-5.7 [facility] Comment on above: Performed By: #### A 1C WTH eA, CBC, TSH3, LIPID, CMP #### [address] Albumin/Globulin [Mass ratio] 1.2 {ratio} Normal [facility] Comment on above: Performed By: #### A 1C WTH eA, CBC, TSH3, LIPID, CMP #### [address] ALP [Catalytic activity/Vol] 81 U/L Normal 34-104 [facility] Comment on above: Performed By: #### A 1C WTH eA, CBC, TSH3, LIPID, CMP #### [address] ALT [Catalytic activity/Vol] 10 U/L Normal 7-52 [facility] Comment on above: Performed By: #### A 1C WTH eA, CBC, TSH3, LIPID, CMP #### [address] Anion gap [Moles/Vol] 9.5 mmol/L Normal 6.0-15.0 [facility] Comment on above: Performed By: #### A 1C WTH eA, CBC, TSH3, LIPID, CMP #### [address] AST [Catalytic activity/Vol] 13 U/L Normal 13-39 [facility] Comment on above: Performed By: #### A 1C WTH eA, CBC, TSH3, LIPID, CMP #### [address] Bilirubin [Mass/Vol] 0.3 mg/dL Normal 0.3-1.0 [facility] Comment on above: Performed By: #### A 1C WTH eA, CBC, TSH3, LIPID, CMP #### [address] Calcium [Mass/Vol] 9.3 mg/dL Normal 8.6-10.3 [facility] Comment on above: Performed By: #### A 1C WTH eA, CBC, TSH3, LIPID, CMP #### [address] Chloride [Moles/Vol] 105 mmol/L Normal 98-107 [facility] Comment on above: Performed By: #### A 1C WTH eA, CBC, TSH3, LIPID, CMP #### [address] CO2 [Moles/Vol] 31.8 mmol/L High 21.0-31.0 [facility] Comment on above: Performed By: #### A 1C WTH eA, CBC, TSH3, LIPID, CMP #### [address] Creatinine [Mass/Vol] 0.62 mg/dL Normal 0.60-1.20 [facility] Comment on above: Performed By: #### A 1C WTH eA, CBC, TSH3, LIPID, CMP #### [address] GFR/1.73 sq M.predicted MDRD (S/P/Bld) [Vol rate/Area] mL/min/{1.73_m2} Normal [facility] Comment on above: Performed By: #### A 1C WTH eA, CBC, TSH3, LIPID, CMP #### [address] Globulin (S) [Mass/Vol] 3.1 g/dL Normal T he [facility] Comment on above: Performed By: #### A 1C WTH eA, CBC, TSH3, LIPID, CMP #### [facility] [address] Glucose [Mass/Vol] 87 mg/dL Normal 70-100 [facility] Comment on above: Result Comment: [place] Glucose Reference Range is dependent on time and content of last meal. Glucose of more than 200 mg/dL in a nonstressed, ambulatory subject supports the diagnosis of Diabetes Mellitus. ADA recommended reference range Performed By: #### A 1C WTH eA, CBC, TSH3, LIPID, CMP #### [facility] [address] Potassium [Moles/Vol] 4.3 mmol/L Normal 3.5-5.1 [facility] Comment on above: Performed By: #### A 1C WTH eA, CBC, TSH3, LIPID, CMP #### [address] Protein [Mass/Vol] 6.7 g/dL Normal 6.4-8.9 [facility] Comment on above: Performed By: #### A 1C WTH eA, CBC, TSH3, LIPID, CMP #### [facility] [address] [place] [address] [place] Sodium [Moles/Vol] 142 mmol/L Normal 136-145 [facility] Comment on above: Performed By: #### A 1C WTH eA, CBC, TSH3, LIPID, CMP #### [place] [address] [place] Urea nitrogen [Mass/Vol] 11 mg/dL Normal 7-25 [facility] Comment on above: Performed By: #### A 1C WTH eA, CBC, TSH3, LIPID, CMP #### [place] [address] [place] Creatinine [Mass/volume] in Serum or PlasmaOrdered By: Sunita Lyons on 01-17-2024 Creatinine [Mass/Vol] 0.62 mg/dL 0.60-1.20 [facility] Eosinophils Auto (Bld) [#/Vo l]Ordered By: Sunita Lyons on 01-17-2024 Eosinophils (Bld) [#/Vol] 0.2 10*3/uL 0.0-0.45 [facility] Eosinophils/100 WBC Auto (Bl d)Ordered By: Sunita Lyons on 01-17-2024 Eosinophils/100 WBC (Bld) 1.3 % . [facility] Erythrocyte distribution wid th Auto (RBC) [Ratio]Ordered By: Sunita Lyons on 01-17-2024 Erythrocyte distribution width (RBC) [Ratio] 14.1 % 11.9-15.3 [facility] Globulin Calc (S) [Mass/Vol] Ordered By: Sunita Lyons on 01-17-2024 Globulin (S) [Mass/Vol] 3.1 g/dL [facility] Glucose [Mass/volume] in Ser um or PlasmaOrdered By: Sunita Lyons on 01-17-2024 Glucose [Mass/Vol] 87 mg/dL 70-100 [facility] Comment on above: ADA recommended refe rence rangeRandom Glucose Reference Range is dependent on time and content of last meal. Glucose of more than 200 mg/dL in a nonstressed, ambulatory subject supports the diagnosis of Diabetes Mellitus. Glucose mean value [Mass/vol ume] in Blood Estimated from glycated hemoglobinOrdered By: Sunita Lyons on 01-17-2024 Average glucose Estimated from glycated hemoglobin (Bld) [Mass/Vol] 128 mg/dL [facility] Hematocrit Auto (Bld) [Volum e fraction]Ordered By: Sunita Lyons on 01-17-2024 Hematocrit (Bld) [Volume fraction] 41.6 % 34.0-46.4 [facility] Hemoglobin A1c percentageOrd ered By: Sunita Lyons on 01-17-2024 HbA1c (Bld) [Mass fraction] 6.1 % 4.3-5.6 [facility] Comment on above: Increased risk for d iabetes: 5.7 - 6.4diabetes: >6.4glycemic control for adults with diabetes: <7.0 Hemoglobin [Mass/volume] in BloodOrdered By: Sunita Lyons on 01-17-2024 Hemoglobin (Bld) [Mass/Vol] 13.1 g/dL 11.8-15.4 [facility] Leukocytes [#/volume] correc lorna for nucleated erythrocytes in Blood by Automated counOrdered By: Sunita Lyons on 01-17-2024 WBC corrected for nucl RBC Auto (Bld) [#/Vol] 12.7 10*3/uL 3.8-11.6 [facility] Lipid Panelon 01-17-2024 Cholesterol [Mass/Vol] 258 mg/dL High 140-200 Th [facility] Comment on above: Result Comment: Chol less than 200 mg/dl low risk Chol 201-239 mg/dl borderline risk Chol 240 mg/dl and greater high risk Performed By: #### A 1C WTH eA, CBC, TSH3, LIPID, CMP #### [facility] [address] [place] [id number] [place] Cholesterol in HDL [Mass/Vol] 43 mg/dL Normal 23-92 [facility] Comment on above: Result Comment: HDL CHOL ATP-III CLASSIFICATION Cardiovascular Risk HDL > or equal to 60 mg/dL LOW HDL < 40 mg/dL HIGH Performed By: #### A 1C WTH eA, CBC, TSH3, LIPID, CMP #### [facility] [address] [place] [address] [place] Cholesterol.total/Cat sterol in HDL [Mass ratio] 6.0 {ratio} Normal <5.0 [facility] Comment on above: Performed By: #### A 1C WTH eA, CBC, TSH3, LIPID, CMP #### [facility] [address] [place] [address] [place] LDL Cholesterol,Calculated 182 mg/dL High 0-100 [facility] Comment on above: Result Comment: LDL ATP III CLASSIFICATION LDL less than 100 mg/dL Optimal LDL 100-129 mg/dL Near or above optimal LDL 130-159 mg/dL Borderline high LDL 160-189 mg/dL High LDL greater than 189 mg/dL Very high Performed By: #### A 1C WTH eA, CBC, TSH3, LIPID, CMP #### [facility] [address] [place] [address] [place] Triglyceride w/Reflex 165 mg/dL High 0-149 [facility] Comment on above: Result Comment: TRIG ATP III CLASSIFICATION TRIG less than 150 mg/dL Normal TRIG 150-199 mg/dL Borderline high TRIG 200-500 mg/dL High TRIG greater than 500 mg/dL Very high Standard traceable to the Center for Disease Conrtrol and Prevention (CDC) test method. Performed By: #### A 1C WT eA, CBC, TSH3, LIPID, CMP #### [facility] [address] VLDL CHOLESTEROL 33 mg/dL Normal [facility] Comment on above: Performed By: #### A 1C WTH eA, CBC, TSH3, LIPID, CMP #### [facility] [address] Lymphocytes Auto (Bld) [#/Vo l]Ordered By: Sunita Lyons on 01-17-2024 Lymphocytes (Bld) [#/Vol] 2.2 10*3/uL 1.00-4.8 [facility] Lymphocytes/100 WBC Auto (Bl d)Ordered By: Sunita Lyons on 01-17-2024 Lymphocytes/100 WBC (Bld) 17.2 % . [facility] MCH Auto (RBC) [Entitic mass ]Ordered By: Sunita Lyons on 01-17-2024 MCH (RBC) [Entitic mass] 26.0 pg 24.7-34.3 [facility] MCHC Auto (RBC) [Mass/Vol]Or dered By: Sunita Lyons on 01-17-2024 MCHC (RBC) [Mass/Vol] 31.4 g/dL 32.0-35.0 [facility] MCV Auto (RBC) [Entitic vol] Ordered By: Sunita Lyons on 01-17-2024 MCV (RBC) [Entitic vol] 82.9 fL 80-100 [facility] Monocytes Auto (Bld) [#/Vol] Ordered By: Sunita Lyons on 01-17-2024 Monocytes (Bld) [#/Vol] 1.0 10*3/uL 0.0-0.8 [facility] Monocytes/100 WBC Auto (Bld) Ordered By: Sunita Lyons on 01-17-2024 Monocytes/100 WBC (Bld) 7.8 % . [facility] Neutrophils Auto (Bld) [#/Vo l]Ordered By: Sunita Lyons on 01-17-2024 Neutrophils (Bld) [#/Vol] 9.3 10*3/uL 1.8-7.7 [facility] Neutrophils/100 WBC Auto (Bl d)Ordered By: Sunita Lyons on 01-17-2024 Neutrophils/100 WBC (Bld) 73.1 % . [facility] No Panel InformationOrdered By: Sunita Lyons on 01-17-2024 Estimated GFR (CKD-EPI) > 60.0 mL/Min [facility] Creatinine Clearance (Chem N/A [facility] Nucleated erythrocytes [Pres ence] in Blood by Automated countOrdered By: Sunita Lyons on 01-17-2024 Nucleated RBC Auto Ql (Bld) 0.2 /100{WBC} 0-0.5 [facility] Platelet mean volume Auto (B ld) [Entitic vol]Ordered By: Sunita Lyons on 01-17-2024 Platelet mean volume (Bld) [Entitic vol] 6.4 fL 6.3-10.7 [facility] Platelets Auto (Bld) [#/Vol] Ordered By: Sunita Lyons on 01-17-2024 Platelets (Bld) [#/Vol] 638 10*3/uL 150-450 [facility] Potassium [Moles/volume] in Serum or PlasmaOrdered By: Sunita Lyons on 01-17-2024 Potassium [Moles/Vol] 4.3 mmol/L 3.5-5.1 [facility] Protein [Mass/volume] in Ser um or PlasmaOrdered By: Sunita Lyons on 01-17-2024 Protein [Mass/Vol] 6.7 g/dL 6.4-8.9 [facility] RBC Auto (Bld) [#/Vol]Ordere d By: Sunita Lyons on 01-17-2024 RBC (Bld) [#/Vol] 5.02 10*6/uL 3.60-5.00 [facility] Serum or plasma albumin/glob ulin mass ratioOrdered By: Snuita Lyons on 01-17-2024 Albumin/Globulin [Mass ratio] 1.2 {ratio} [facility] Serum or plasma anion gap de terminationOrdered By: Sunita Lyons on 01-17-2024 Anion gap [Moles/Vol] 9.5 mmol/L 6.0-15.0 [facility] Serum or plasma high density lipoprotein (HDL) cholesterol measurementOrdered By: Sunita Lyons on 01-17-2024 Cholesterol in HDL [Mass/Vol] 43 mg/dL 23-92 [facility] Comment on above: HDL CHOL ATP-III CLA SSIFICATION Cardiovascular RiskHDL > or equal to 60 mg/dL LOWHDL < 40 mg/dL HIGH Serum or plasma total choles terol/high density lipoprotein (HDL) cholesterol mass ratOrdered By: Sunita Lyons on 01-17-2024 Cholesterol.total/Cat sterol in HDL [Mass ratio] 6.0 {ratio} <5.0 [facility] Sodium [Moles/volume] in Ser um or PlasmaOrdered By: Sunita Lyons on 01-17-2024 Sodium [Moles/Vol] 142 mmol/L 136-145 [facility] Thyroid Stimulating Hormoneo n 01-17-2024 TSH Qn 3.01 m[IU]/L Normal 0.45-5.33 [facility] Comment on above: Result Comment: PERF ORMED BY: [place] [address] PATHOLOGIST [employer] ASSISTANT GARLAND CASAREZ M.D. Performed By: #### A 1C WT eA, CBC, TSH3, LIPID, CMP #### [address] Thyrotropin [Units/volume] i n Serum or PlasmaOrdered By: Sunita Lyons on 01-17-2024 TSH Qn 3.01 m[IU]/L 0.45-5.33 [facility] Triglyceride [Mass/volume] i n Serum or PlasmaOrdered By: Sunita Lyons on 01-17-2024 Triglyceride [Mass/Vol] 165 mg/dL 0-149 [facility] Comment on above: TRIG ATP III CLASSIF ICATIONTRIG less than 150 mg/dL NormalTRIG 150-199 mg/dL Borderline highTRIG 200-500 mg/dL High TRIG greater than 500 mg/dL Very highStandard traceable to the Center for Disease Conrtrol and Prevention (CDC) test method. Urea nitrogen [Mass/volume] in Serum or PlasmaOrdered By: Sunita Lyons on 01-17-2024 Urea nitrogen [Mass/Vol] 11 mg/dL 7-25 [facility] WBC Auto (Bld) [#/Vol]Ordere d By: Sunita Lyons on 01-17-2024 WBC (Bld) [#/Vol] 12.7 10*3/uL 3.8-11.6 [facility] Laboratory - Chemistry and C hemistry - challengeon 01-16-2024 Bilirubin Ql (U) Negative [facility] Glucose (U) [Mass/Vol] Negative [facility] Ketones Ql (U) Negative [facility] pH (U) 7.0 [pH] [facility] Specific gravity (U) [Rel density] 1.020 [facility] Urobilinogen (U) [Mass/Vol] 0.2 mg/dL [facility] Laboratory - Specimen inform ationon 01-16-2024 Appearance (U) clear [facility] Color (U) yellow [facility] Laboratory - Urinalysison Leukocyte esterase Test strip Ql (U) Negative [facility] Nitrite Ql (U) Negative [facility] Protein Ql (U) Negative [facility] No Panel Informationon 01-15 Urine Occult Blood trace-intact [facility] COVID + FLU Quick Testingon 10-13-2021 SARS-CoV-2 (COVID-19) RNA ITZEL+probe Ql (Unsp spec) Negative [facility] Other COVID + FLU Quick Testing Negative [facility] Other CBC AUTO DIFFon 04-10-2021 BASO # 0.1 103/ul Normal 0.0-0.1 [facility] Comment on above: Performed By: #### C BC #### [facility] [address] [address] [place] Basophils/100 WBC (Bld) 0.9 % Normal 0.2-2.0 [facility] Comment on above: Performed By: #### C BC #### [facility] [address] [place], [place] [id number] [place] EO # 0.1 103/ul Normal 0.0-0.7 [facility] Comment on above: Performed By: #### C BC #### [facility] [address] [place], [place] [id number] [place] Eosinophils/100 WBC (Bld) 1.4 % Normal 0.9-7.0 [facility] Comment on above: Performed By: #### C BC #### [facility] [address] [place] [address] [place] Erythrocyte distribution width (RBC) [Ratio] 13.3 % Normal 11.0-15.0 [facility] Comment on above: Performed By: #### C BC #### [facility] [address] [place] [address] [place] Hematocrit (Bld) [Volume fraction] 47.0 % Normal 36.0-48.0 [facility] Comment on above: Performed By: #### C BC #### [facility] [address] [place], [place] [id number] [place] Hemoglobin (Bld) [Mass/Vol] 15.2 g/dL Normal 12.0-16.0 [facility] Comment on above: Performed By: #### C BC #### [facility] [address] [place] [address] [place] IG # 0.03 10e3/ul Normal 0.00-0.03 [facility] Comment on above: Performed By: #### C BC #### [facility] [address] [place] [address] [place] IG % 0.3 % Normal 0.0-0.5 [facility] Comment on above: Performed By: #### C BC #### [facility] [address] [place] [address] [place] LYMPH # 2.8 103/ul Normal 1.2-3.8 [facility] Comment on above: Performed By: #### C BC #### [facility] [address] [id number] [place] Lymphocytes/100 WBC (Bld) 30.1 % Normal 20.5-60.0 [facility] Comment on above: Performed By: #### C BC #### [facility] [address] [place], [place] [id number] [place] MANUAL DIFF REQ NO Normal [facility] Comment on above: Performed By: #### C BC #### [facility] [address] [place], [place] [id number] [place] MCH (RBC) [Entitic mass] 29.7 pg Normal 26.7-34.0 [facility] Comment on above: Performed By: #### C BC #### [facility] [address] [place], [place] [id number] [place] MCHC (RBC) [Mass/Vol] 32.3 g/dL Normal 29.9-35.2 [facility] Comment on above: Performed By: #### C BC #### [facility] [address] [place], [place] [id number] [place] MCV (RBC) [Entitic vol] 91.8 fL Normal 81.0-99.0 [facility] Comment on above: Performed By: #### C BC #### [facility] [address] [place], [place] [id number] [place] MONO # 0.9 103/ul Critically high 0.3-0.8 [facility] Comment on above: Performed By: #### C BC #### [facility] [address] [place], [place] [id number] [place] Monocytes/100 WBC (Bld) 9.9 % Normal 1.7-12.0 [facility] Comment on above: Performed By: #### C BC #### [facility] [address] [place], [place] [id number] [place] NEUT # 5.2 103/ul Normal 1.4-6.5 [facility] Comment on above: Performed By: #### C BC #### [facility] [address] [id number] [place] Neutrophils/100 WBC (Bld) 57.4 % Normal 43.0-75.0 [facility] Comment on above: Performed By: #### C BC #### [facility] [address] [id number] [place] Platelet mean volume (Bld) [Entitic vol] 8.5 fL Critically low 9.5-13.5 [facility] Comment on above: Performed By: #### C BC #### [facility] [address] [id number] [place] PLT 425 103/ul Normal 150-450 [facility] Comment on above: Performed By: #### C BC #### [facility] [address] [place], [place] [id number] [place] RBC 5.12 106/ul Normal 4.20-5.40 [facility] Comment on above: Performed By: #### C BC #### [facility] [address] [id number] [place] WBC 9.1 103/ul Normal 4.0-11.0 [facility] Comment on above: Performed By: #### C BC #### [facility] [address] [place], [place] [id number] [place] LIPID PROFILEon 04-10-2021 CHOL-HDL RATIO NORM SEE BELOW Normal [facility] Comment on above: Result Comment: 3.3 - 4.4 LOW RISK 4.4 - 7.1 AVERAGE RISK 7.1 - 11.0 MODERATE RISK >11.0 HIGH RISK Performed By: #### T SH, CMP, LIPID #### [facility] [address] [place], [place] [address] [place] Cholesterol [Mass/Vol] 305 mg/dL Critically high <=200 [facility] Comment on above: Performed By: #### T SH, CMP, LIPID #### [facility] [address] [id number] [place] Cholesterol in HDL [Mass/Vol] 54 mg/dL Normal [facility] Comment on above: Performed By: #### T SH, CMP, LIPID #### [facility] [address] [id number] [place] Cholesterol in LDL [Mass/Vol] 230.0 mg/dL Normal [facility] Comment on above: Performed By: #### T SH, CMP, LIPID #### [facility] [address] [id number] [place] Cholesterol.total/Cat sterol in HDL [Mass ratio] 5.6 {ratio} Normal [facility] Comment on above: Performed By: #### T SH, CMP, LIPID #### [facility] [address] [id number] [place] HDL NORMAL > or = 60 mg/dl - LO W CARDIOVASCULAR RISK <40 mg/dl - HIGH CARDIOVASCULAR RISK Normal [facility] Comment on above: Performed By: #### T ASHLEIGH, CMP, LIPID #### [facility] [address] [place] [address] [place] LDL CALC NORMAL SEE BELOW Normal [facility] Comment on above: Result Comment: <100 mg/dl OPTIMAL 100 - 129 mg/dl NEAR OR ABOVE OPTIMAL 130 - 159 mg/dl BORDERLINE HIGH 160 - 189 mg/dl HIGH >190 mg/dl VERY HIGH Performed By: #### T ASHLEIGH, CMP, LIPID #### [facility] [address] [place] [address] [place] Triglyceride [Mass/Vol] 105 mg/dL Normal <=150 [facility] Comment on above: Performed By: #### T ASHLEIGH, CMP, LIPID #### [facility] [address] [address] [place] VLDL CALC 21.0 mg/dL Normal [facility] Comment on above: Performed By: #### T ASHLEIGH, CMP, LIPID #### [facility] [address] [place], [place] [id number] [place] PROF 14(COMP METB)on 021 Albumin [Mass/Vol] 3.3 g/dL Critically low 3.5-5.0 [facility] Comment on above: Performed By: #### T ASHLEIGH, CMP, LIPID #### [facility] [address] [id number] [place] Albumin/Globulin [Mass ratio] 0.8 {ratio} Normal [facility] Comment on above: Performed By: #### T SH, CMP, LIPID #### [facility] [address] [id number] [place] ALP [Catalytic activity/Vol] 98 U/L Normal 38-126 [facility] Comment on above: Performed By: #### T SH, CMP, LIPID #### [facility] [address] [address] [place] ALT [Catalytic activity/Vol] 18 U/L Normal 9-52 [facility] Comment on above: Performed By: #### T ASHLEIGH, CMP, LIPID #### [facility] [address] [address] [place] Anion gap [Moles/Vol] 10.7 mmol/L Normal [facility] Comment on above: Performed By: #### T ASHLEIGH, CMP, LIPID #### [facility] [address] [address] [place] AST [Catalytic activity/Vol] 14 U/L Normal 14-36 [facility] Comment on above: Performed By: #### T ASHLEIGH, CMP, LIPID #### [facility] [address] [address] [place] Bilirubin [Mass/Vol] 0.5 mg/dL Normal 0.2-1.3 [facility] Comment on above: Performed By: #### T ASHLEIGH, CMP, LIPID #### [facility] [address] [address] [place] Calcium [Mass/Vol] 9.4 mg/dL Normal 8.4-10.2 [facility] Comment on above: Performed By: #### T ASHLEIGH, CMP, LIPID #### [facility] [address] [address] [place] Chloride [Moles/Vol] 105 mmol/L Normal 98-107 [facility] Comment on above: Performed By: #### T SH, CMP, LIPID #### [facility] [address] [id number] [place] CO2 [Moles/Vol] 30.6 mmol/L Critically high 22.0-30.0 [facility] Comment on above: Performed By: #### T SH, CMP, LIPID #### [facility] [address] [address] [place] Creatinine [Mass/Vol] 0.71 mg/dL Normal 0.52-1.04 [facility] Comment on above: Performed By: #### T SH, CMP, LIPID #### [facility] [address] [address] [place] EGFR-AF MAURITANIAN >60 Normal >=60 [facility] Comment on above: Performed By: #### T ASHLEIGH, CMP, LIPID #### [facility] [address] [address] [place] EGFR-NON AF MAURITANIAN >60 Normal >=60 [facility] Comment on above: Performed By: #### T ASHLEIGH, CMP, LIPID #### [facility] [address] [address] [place] Globulin (S) [Mass/Vol] 4.2 g/dL Normal [facility] Comment on above: Performed By: #### T ASHLEIGH, CMP, LIPID #### [facility] [address] [address] [place] Glucose [Mass/Vol] 108 mg/dL Critically high 74-106 [facility] Comment on above: Performed By: #### T ASHLEIGH, CMP, LIPID #### [facility] [address] [address] [place] Potassium [Moles/Vol] 4.3 mmol/L Normal 3.4-5.0 [facility] Comment on above: Performed By: #### T ASHLEIGH, CMP, LIPID #### [facility] [address] [address] [place] Protein [Mass/Vol] 7.5 g/dL Normal 6.1-8.2 [facility] Comment on above: Performed By: #### T ASHLEIGH, CMP, LIPID #### [facility] [address] [id number] [place] Sodium [Moles/Vol] 142 mmol/L Normal 137-145 [facility] Comment on above: Performed By: #### T ASHLEIGH CMP, LIPID #### [facility] [address] [id number] [place] Urea nitrogen [Mass/Vol] 13.0 mg/dL Normal 7.0-17.0 [facility] Comment on above: Performed By: #### T ASHLEIGH, CMP, LIPID #### [facility] [address] [id number] [place] Urea nitrogen/Creatinine [Mass ratio] 18.3 mg/mg Normal [facility] Comment on above: Performed By: #### T ASHLEIGH CMP, LIPID #### [facility] [address] [place] [address] [place] TSHon 04-10-2021 TSH 2.909 uIU/mL Normal 0.470-4.680 [facility] Comment on above: Performed By: #### T ASHLEIGH CMP, LIPID #### [facility] [address] [place], [place] [id number] [place] TSH RANGE SEE BELOW Normal [facility] Comment on above: Result Comment: <0.3 4 UIU/ml HYPERTHYROID 0.34-5.60 UIU/ml EUTHYROID >5.60 UIU/ml HYPOTHYROID Performed By: #### T ASHLEIGH CMP, LIPID #### [facility] [address] [place], [place] [id number] [address]on [address] CT CHEST WO CONon 03-15-2021 CT CHEST WO CON EXAMINATION: CT CHES T WO CON 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 TECHNIQUE: Multi-planar CT images were created without IV contrast. Axial, Coronal, and Sagittal images. Dose reduction techniques were achieved by using automated exposure control and/or adjustment of mA and/or kV according to patient size and/or use of iterative reconstruction technique. FINDINGS: LUNGS: Large thick-walled cavitary lesion within the right lung apex, 7.0 cm in diameter. A few smaller 1-1.5 cm cavitary lesions. Innumerable small nodules scattered within the lungs ranging between 2 and 10 mm. Several calcified nodules bilaterally. Marked cystic bronchiectasis involving the mostly collapsed right upper lobe. PLEURA: No mass, effusion, or pneumothorax. RYAN: No mass or adenopathy. MEDIASTINUM: No mass or adenopathy. CARDIAC: No enlargement, pericardial effusion, or pericardial thickening. AORTA: No aneurysm or dissection. CHEST WALL: No mass or axillary adenopathy. BONES: No bone lesion or fracture. LIMITED ABDOMEN: No suspicious findings. Limited images of the upper abdomen. OTHER: Negative. IMPRESSION: 1. No prior studies or reports for comparison. 2. Large right apical cavitary lesion 7 cm in diameter. A few smaller 1-1.5 cm cavitary lesions. Innumerable small nodules bilaterally, a few of these are calcified; nonspecific. 3. Marked bronchiectasis and numerous calcifications within the mostly collapsed right upper lobe. 4. No appreciable lymphadenopathy. Electronically authenticated by: SAMUEL HINKLE Date: 2021-03-15 16:00 Normal [facility] HEMOGLOBINon 03-15-2021 Hemoglobin (Bld) [Mass/Vol] 14.3 g/dL Normal 12.0-16.0 [facility] Comment on above: Performed By: #### H GB #### [facility] [address] [place] [address] Jamesonkiley Coe Vital Signs Date Time Vital Sign Value Performing Clinician Faci lity 01-16-2024 14:040 Body height 167.64 cm [facility] 01-16-2024 14:040 Body mass index (BMI) [Ratio] 16.2 kg/m2 [facility] 01-16-2024 14:040 Body weight 45.81 kg [facility] 01-16-2024 14:-040 Diastolic blood pressure 72 mm[Hg] [facility] 01-16-2024 14:27-040 Heart rate 118 /min [facility] 01-16-2024 14:040 Respiratory rate 18 /min [facility] 01-16-2024 14:27040 SaO2% (BldA) [Mass fraction] 98 % [facility] 01-16-2024 14:27-0400 Systolic blood pressure 110 mm[Hg] [facility] 12-25-2023 15:01-0400 Body height 167.64 cm [facility] 12-25-2023 15:01-0400 Body mass index (BMI) [Ratio] 16.2 kg/m2 [facility] 12-25-2023 15:01-0400 Body temperature 98.2 [degF] [facility] 12-25-2023 15:01-0400 Body weight 45.81 kg [facility] 12-25-2023 15:01-0400 Heart rate 120 /min [facility] 12-25-2023 15:01-0400 Respiratory rate 18 /min [facility] 12-25-2023 15:01-0400 SaO2% (BldA) [Mass fraction] 94 % [facility] Encounters Encounter Date Encounter Type Care Provider Facility Start: 01-23-2024 End: 01-23-2024 ambulatory Sunita Kuns Facility:[facility] Start: 01-23-2024 End: 01-23-2024 ambulatory DO Sunita Kuns Work Phone: [facility] Work Phone: Start: 01-23-2024 End: 01-23-2024 Patient encounter procedure DO Sunita Kuns Work Phone: [facility] [place] Work Phone: Start: 01-17-2024 End: 01-17-2024 ambulatory Sunita Kuns Facility:[facility] Start: 01-17-2024 Encounter for genera l adult medical examination without abnormal findings Sunita Lyons [facility] Start: 01-17-2024 End: 01-17-2024 ambulatory DO Sunita Kuns Work Phone: [facility] Work Phone: Start: 01-17-2024 End: 01-17-2024 Patient encounter procedure DO Sunita Kuns Work Phone: [facility] [place] Work Phone: Start: 01-16-2024 End: 01-16-2024 ambulatory [facility] Work Phone: Start: 01-16-2024 End: 01-16-2024 Encounter for general adult medical examination without abnormal findings [facility] Start: 01-16-2024 End: 01-16-2024 Patient encounter procedure [facility] Work Phone: Start: 12-25-2023 End: 12-25-2023 ambulatory [facility] Work Phone: Start: 12-25-2023 End: 12-25-2023 Patient encounter procedure [facility] Work Phone: Start: 10-13-2021 End: 10-13-2021 ambulatory Sunita Lyons Other [employer] Other Start: 10-13-2021 Nursing evaluation o f patient and report Sunita Lyons [facility] Start: 10-13-2021 Telephone encounter Sunita Lyons [facility] Start: 10-05-2021 End: 10-05-2021 ambulatory Sunita Lyons Other [employer] Other Start: 10-05-2021 Telephone encounter Sunita Lyons [facility] Start: 04-20-2021 Encounter for genera l adult medical examination without abnormal findings DR SUNITA LYONS [facility] Start: 04-10-2021 End: 04-11-[address] SUNITA LYONS Facility:[facility] Start: 04-10-2021 End: 04-11-2021 Encounter for general adult medical examination without abnormal findings DR SUNITA LYONS Facility:[facility] Start: 03-15-2021 End: 03-16-2021 ambulatory [facility] Facility:[facility] Start: 02-07-2017 End: 02-07-2017 Refill Bravo Alcantar MD Work Phone: Infectious Disease Comment on above: Refill Request Procedures Date Procedure Procedure Detail Performing Clinician Start: 01-23-2024 Plain chest X-ray DO Jeremiah Lyons Work Phone: Start: 01-23-2024 Ultrasonography of b ilateral kidneys DO Sunita Lyons Work Phone: Plan of Treatment Date Care Activity Detail Author Start: 01-17-2024 [facility] Start: 06-09-2021 Influenza vaccination INFLUENZ A (Season Ended) [facility] Start: 02-03-2019 DIABETES SCREEN DIABETES SCREEN [facility] Start: 2014 Screening for malign ant neoplasm of colon [facility] Start: 2014 SHINGRIX VACCINE (1 of 2) LEON GRIX VACCINE (1 of 2) [facility] Start: 2009 LIPID SCREEN LIPID SCREEN [facility] Start: 2004 Mammography MAMMOGRAM [facility] Start: 1994 HPV TESTING HPV TESTING [facility] Start: 1985 PAP TESTING PAP TESTING [facility] Start: 1983 ONE PNEUMOVAX PRIOR TO AGE 64 ONE PNEUMOVAX PRIOR TO AGE 64 [facility] Start: 1983 Urine microalbumin profile DTAP,TDAP,TD (1 - Tdap) [facility] Start: 1982 HEPATITIS C [facility] Start: 1976 Adult depression screening assessment DEPRESSION SCREENING [facility] Comprehensive metabo lic 2000 panel - Serum or Plasma [facility] EKG [address] [facility] Glucose measurement estimated from glycated hemoglobin [facility] XR Chest 2 Views [facility] Immunizations Immunization Date Immunization Notes Care Provider Fa cility 02-12-2021 COVID-19 Vaccine Pfi zer - Documentation Purposes Only Sunita Lyons Other [facility] 01-22-2021 COVID-19 Vaccine Pfi zer - Documentation Purposes Only Sunita Lyons Other [facility] Payers Date Payer Category Payer Self-pay [id number] edee 2012 Unknown [employer] PPO [id number] 2012-Present PPO [id number] 1964 Unknown [id number] 1964 Unknown [id number] 1959 Unknown [id number] Unknown [id number] Unknown [id number] Social History Date Type Detail Facility Start: 12-25-2015 Tobacco smoking stat [facility] Current every day smoker [facility] History of tobacco use Cigarette Smoker [facility] Start: 12-25-2015 Cigarettes smoked current (pack per day) - Reported [facility] Start: 12-25-2015 Tobacco use and exposure Never used [facility] Start: 12-25-2015 Alcohol intake Current drinke r of alcohol (finding) [facility] Start: 12-25-2015 Tobacco Comment down to 0.5 ppd [facility] Start: 1965 Sex Assigned At Not on file C [facility] Sex Assigned At Sex Assigned At [facility] [employer] Other Start: 05-07-2021 End: 01-16-2024 Tobacco smoking status NHIS Smoker (finding) [facility] Start: 1965 Sex Assigned At Female F [facility] Evaluation note 01-16-2024 Note Date & Type Note Facility 01-16-2024 Evaluation note Authored January 16, 2024 2:13 pm The above note written by Milo STEPHENS acting as human recorder, note dictated by Dr. Sunita Lyons. [facility] Work Phone: Evaluation note 10-13-2021 Note Date & Type Note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
[2024-01-29 18:08] VITALS: BP 92/65; PULSE 103; O2SAT 98
[2024-01-29 18:19] VITALS: BP 92/65; PULSE 103; O2SAT 98
== END 2024-01-29 18:23 | disposition home or self-care (01) ==
PROVIDERS: Emergency Provider Student in an Organized Health Care Education/Training Program; PCP Family Medicine
DX: S70.01XA Contusion of right hip, initial encounter (principal); W01.10XA Fall on same level from slipping, tripping and stumbling with subsequent striking against unspecified object, initial encounter; F17.210 Nicotine dependence, cigarettes, uncomplicated; Z87.81 Personal history of (healed) traumatic fracture
CPT/HCPCS: 73502; 99283